=== PATIENT | male | born 1955 | race Caucasian/White ===

== ENCOUNTER → 2018-01-30 09:36 | Outpatient (CLI) | payer BC, SELFPAY ==
[2018-01-30 13:03] LABS: Anion Gap 11 (5-15); BUN 14 mg/dL (7-18); Calcium,Total 9.4 mg/dL (8.5-10.1); Chloride 98 mmol/L (98-107); Cholesterol 167 mg/dL (200); Creatinine, Serum 0.93 mg/dL (0.70-1.30); EST Glomerular Filtration Rate 87 mL/min (>60); Est Glom Filt Rate - Afr Amer 105 mL/min (>60); Glucose 103 mg/dL (74-106); High Density Lipoprotein 46 mg/dL; Potassium 3.6 mmol/L (3.5-5.1); Sodium Level 136 mmol/L (136-145); Triglycerides 247 mg/dL; Very Low Density Lipoprotein 49 mg/dL (5-40)
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
== END ==
PROVIDERS: Family Provider Family Medicine; PCP Family Medicine; Referring Provider Family Medicine; Visit Provider Family Medicine
DX: I10 Essential (primary) hypertension (principal); H40.9 Unspecified glaucoma
CPT/HCPCS: 36415; 80048; 80061

== ENCOUNTER → 2019-01-16 | Outpatient (CLI) | payer MEDICARE, SELFPAY ==
[2019-01-16 12:28] LABS: Anion Gap 8 (5-15); BUN 12 mg/dL (7-18); BUN/Creat Ratio 12.4 RATIO (10-20); Calcium,Total 9.3 mg/dL (8.5-10.1); Chloride 101 mmol/L (98-107); Cholesterol 168 mg/dL (200); Creatinine, Serum 0.97 mg/dL (0.70-1.30); EST Glomerular Filtration Rate 83 mL/min (>60); Est Glom Filt Rate - Afr Amer 100 mL/min (>60); Glucose 111 mg/dL (74-106); High Density Lipoprotein 44 mg/dL; Potassium 4.3 mmol/L (3.5-5.1); Sodium Level 138 mmol/L (136-145); Triglycerides 258 mg/dL; Very Low Density Lipoprotein 52 mg/dL (5-40)
== END | disposition home or self-care (01) ==
LOC: MFPLAB 10:21
PROVIDERS: Family Provider Family Medicine; PCP Family Medicine; Referring Provider Family Medicine; Visit Provider Family Medicine
DX: E78.00 Pure hypercholesterolemia, unspecified (principal); I10 Essential (primary) hypertension; Z12.5 Encounter for screening for malignant neoplasm of prostate
CPT/HCPCS: 36415; 80048; 80061; 84153; G0103

== ENCOUNTER → 2020-01-16 | Outpatient (CLI) | payer MEDICARE, SELFPAY ==
[2020-01-16 13:24] LABS: ALB/GLOB Ratio 1.2 RATIO (0.9-2.4); AST(SGOT) 16 U/L (15-37); Alanine Aminotransfer ALT/SGPT 35 U/L (16-61); Albumin, Serum 4.1 g/dL (3.2-5.0); Alkaline Phosphatase 91 U/L (45-117); Anion Gap 6 (5-15); BUN 15 mg/dL (7-18); BUN/Creat Ratio 14.6 RATIO (10-20); Calcium,Total 9.5 mg/dL (8.5-10.1); Chloride 98 mmol/L (98-107); Cholesterol 190 mg/dL (200); Creatinine, Serum 1.03 mg/dL (0.70-1.30); EST Glomerular Filtration Rate 77 mL/min (>60); Est Glom Filt Rate - Afr Amer 93 mL/min (>60); Globulin 3.5 g/dL (2.2-4.2); Glucose 107 mg/dL (74-106); High Density Lipoprotein 50 mg/dL; Potassium 3.5 mmol/L (3.5-5.1); Protein, Total 7.6 g/dL (6.4-8.2); Sodium Level 135 mmol/L (136-145); Triglycerides 269 mg/dL; Very Low Density Lipoprotein 54 mg/dL (5-40)
== END | disposition home or self-care (01) ==
LOC: MTLAB 09:46
PROVIDERS: PCP Family Medicine; Referring Provider Family Medicine; Visit Provider Family Medicine
DX: I10 Essential (primary) hypertension (principal)
CPT/HCPCS: 36415; 80053; 80061

== ENCOUNTER 2020-10-29 05:52 | Day surgery (SDC) | payer MEDICARE, SELFPAY ==
[2020-09-14 14:03] VITALS: BMI 34.2
--- NOTE | 2020-10-23 10:04 | EKG12_ITS ---
Test Reason : PRE OP Blood Pressure : / mmHG Vent. Rate : 059 BPM Atrial Rate : 059 BPM P-R Int : 172 ms QRS Dur : 096 ms QT Int : 394 ms P-R-T Axes : 052 -14 016 degrees QTc Int : 390 ms Sinus bradycardia Otherwise normal ECG Confirmed by ZENA CHRISTIANSON, GAYLE ([id number]), film editor supervisor MANUEL HENDERSON ([id number]) on 10/26/2020 1:10:00 PM Referred By: Damaso Day Confirmed By:GAYLE FREITAS MD
[2020-10-29] VITALS (7 sets, daily range): BP systolic 116–136; BP diastolic 67–80; PULSE 55–69; RESP 16–18; TEMP 36.2–36.5; O2SAT 94–100; BMI 33.7
[2020-10-29] MEDS: Lactated Ringers 1,000 ML 100 ML IV ×2 (06:27→08:21)
--- NOTE | 2020-10-29 07:10 | HP.PCM_ITS ---
History and Physical Date of Admission: 10/29/20 Intake Vital Signs 09/14/20 14:03 Height 5 ft 5 in Weight: 206 lb 2 oz BMI 34.2 BP 138/89 H Blood Pressure Location Rt brachial Position Sitting Respiration 16 Pulse 58 L Pulse Source Monitor Temp 97.9 F Temp Source Oral Pulse Oximetry (%) 100 Oxygen Delivery Method room air Intake Visit Reasons: R Inguinal Hernia Sound Effects Technician Required: No Accompanied by: Self Is patient in pain?: No (some soreness- Right groin) Allergies No Known Allergies Allergy (Verified 09/14/20 14:04) Medications atorvastatin 20 mg tablet ea PO 09/14/20 [History Confirmed 09/14/20] dorzolamide 22.3 mg-timolol 6.8 mg/mL eye drops ml OPHTHALMIC (EYE) 09/14/20 [History Confirmed 09/14/20] hydrochlorothiazide 25 mg tablet ea PO 09/14/20 [History Confirmed 09/14/20] metoprolol succinate 200 mg tablet,extended release 24 hr ea PO 09/14/20 [History Confirmed 09/14/20] mycophenolate mofetil 500 mg tablet ea PO 09/14/20 [History Confirmed 09/14/20] ramipril 10 mg capsule cap PO 09/14/20 [History Confirmed 09/14/20] PFSH Medical History (Updated 09/14/20 @ 13:57 by Zoraida Sandoval) Hemorrhoid Hypertension Right inguinal hernia Surgical History (Updated 09/14/20 @ 13:57 by Zoraida Sandoval) History of bilateral cataract extraction (~01/08/16) History of colonoscopy (~09/30/19) History of eye surgery (~02/15/18) History of tonsillectomy and adenoidectomy (Unknown) Family History (Updated 09/14/20 @ 14:02 by Zoraida Sandoval) Father Prostate cancer Hypertension Mother Thyroid disorder Myocardial infarction Social History (Updated 09/14/20 @ 14:03 by Zoraida Sandoval) Smoking Status: Former smoker how long ago did patient quit smokin years ago alcohol intake: current alcohol intake frequency: holidays/special occasions only substance use type: does not use caffeine: Yes what type of physical activity do you participate in: none frequency: does not exercise HPI HPI HPI: KIT GUZMAN, is a 64 M who presents to the office today for right inguinal hernia. Patient notes he has been having bulging in his right groin for over a year. Patient reports that he is not having any nausea or vomiting. It is causing discomfort. There is no discomfort in the opposite groin. Patient has no nausea or vomiting. ROS General General: No weight change, appetite, fatigue, colon cancer, breast cancer or weakness HEENT HEENT: Yes eye surgery; No difficulty swallowing, eye injury, swollen glands or hoarseness Endo Endocrine: No thyroid disease, diabetes mellitus, thyroid cancer, Hair loss, heat intolerance or cold intolerance Skin Skin: No rash or changing moles Musc Musculoskeletal: No back problems, arthritis, rheumatoid arthritis, gout or joint pain Cardio Cardiovascular: Yes high blood pressure; No murmur, pacemaker, heart disease, atrial fibrillation, heart attack, heart stent, palpitations, shortness of breat with exertion or chest pain Psych Psychiatric: No depression, anxiety or hearing voices Resp Respiratory: No shortness of breath, No sleep apnea, No cough, No COPD, No asthma, No emphysema and No wheezing Gastro Gastrointestinal: No abdominal pain, No nausea or vomiting, No diarrhea, No constipation, No blood in stool, No acid reflux, Yes hemorrhoids, No ulcers, No gallbladder problem and No black,tarry stools Alejandro Hematologic: No blood thinners, No blood disorders, No bleeding, No anemia and No blood clots Neuro Neurologic: No weakness Exam Const General: cooperative Orientation: alert and oriented x3 [facility] Head: normal to inspection Neck Neck: normal visual inspection and full ROM Chest Chest palpation & inspection: normal inspection of the chest Resp Effort & Inspection: normal respiratory effort Auscultation: clear to auscultation bilaterally Cardio Rate: regular rate Rhythm: regular rhythm GI Inspection: non-distended Palpation: soft, hernia indirect inguinal on the right and nontender Skin General: no rashes or lesions noted Neuro General: patient alert and patient oriented x3 Extrem General: full ROM Psych Appearance: grossly normal Mental Status: mental status grossly normal Assessment and Plan Assessment and Plan (1) Right inguinal hernia: Status: Acute Plan - Dr. Damaso Day MD: The patient has a right inguinal hernia. I discussed repair with him in detail. I discussed open versus laparoscopic repair. I discussed robotic assisted laparoscopic inguinal hernia repair with mesh. The patient would like contralateral hernia repaired if it is present. I discussed the risks of the procedure including not limited to bleeding, infection, injury to underlying bowel or spermatic cord and chronic groin pain. Patient understands the risks and is willing to proceed. Damaso Day MD Pager: [facility] [address] [place] [address], [address] [place] [address] Office: I have re-examined the patient. There are no clinical changes since date of exam.
--- NOTE | 2020-10-29 07:22 | SUR.PREOP ---
[id number] pt up to bathroom with assist- per dr lopez request. pt back to bed
[2020-10-29] MEDS: Cefazolin 2 GM in 0.9% Normal Saline 100 ML IV (07:23)
[2020-10-29] MEDS: Bupivacaine Mpf 0.5% 30 ML VIAL (09:14)
--- NOTE | 2020-10-29 09:29 | PCM.OPRPT ---
Problems Associated Problem List Diagnoses (1) Bilateral inguinal hernia: Report of Operation Date of Procedure: 10/29/20 Pre-Operative Diagnosis: Right inguinal hernia Post-Operative Diagnosis: Bilateral inguinal hernia Surgery/Procedure Performed:: Robotic assisted laparoscopic bilateral inguinal hernia repair with mesh Description of Procedure: Patient was brought back to the operating room and general anesthesia was used. There was a very difficult airway which required fiberoptic intubation. The abdomen was then prepped and draped in usual sterile fashion. An incision was made superior to the umbilicus and deepened to the fascia which was elevated and a Veress needle was placed into the abdomen and a drop test was performed. The abdomen was then insufflated to 15 mmHg. The Veress needle was removed and the camera port was placed. The camera was placed into the abdomen and the abdomen was inspected. There was no injury from entry. Patient was placed in Trendelenburg position and the inguinal regions were inspected. The patient appeared to have bilateral inguinal hernias right larger than left. Next under direct visualization 8 mm port was placed in the right lower quadrant and left lower quadrant. The robot was then docked. Using electrocautery scissors the right peritoneum was incised and dissection was carried inferiorly until the hernia sac was encountered. The hernia sac was dissected free from its dense attachments. ProGrip mesh was unfolded in the right groin completely covering the hernia defect. The peritoneum was reapproximated using a running 3-0V lock suture. There was a large opening in the peritoneum and this was closed with a separate running 3-0V lock suture. At the end of the side the peritoneum completely cover the mesh with no openings. Next the left side was addressed. In the same fashion the left side peritoneum was incised using electrocautery scissors. The dissection was carried inferiorly until the hernia sac was fully reduced and then the dissection was carried further inferiorly. ProGrip mesh was trimmed and placed into the left groin and unfolded over the hernia defect. The peritoneum was reapproximated using a running 3 OV lock suture. The peritoneum completely cover the mesh on the side of the end of the procedure. Both sides were once again inspected and then the instruments were removed and the abdomen was allowed to desufflate. The incisions were injected with local anesthetic and closed using interrupted 4-0 Monocryl suture. Steri-Strips and bandages were applied. The scrotum was checked at the end the case and contain both testicles. Patient was awoken and taken to PACU in stable condition tolerated the procedure well. Grafts/Implants Used: ProGrip mesh bilaterally Admit VTE Documentation VTE Mechan Device Prophylaxis: SCD's
--- NOTE | 2020-10-29 09:33 | EX.PCM.DISCH ---
Discharge Instructions Procedure Hernia Diet Discharge Diet: Light diet - advance as tolerated Activity Discharge Activity: May Not Drive (for 2-3 days or while taking narcotic pain meds.) and May Shower (with the bandage in place 1-2 days after surgery.) Lifting Restrictions: 20 pounds for 6 weeks. Additional Activity Instructions:: Climbing stairs is fine, walking is encouraged. Sitting in bed may be uncomfortable. Sitting up using your lateral muscles (sitting up sideways) is usually more comfortable. Do not drive, work heavy equipment of sign legal documents for 24 hours. If your hernia repair was an ingunial repair, you may have scrotal swelling, an ice pack and/or athletic support can provide more comfort. Pain medications may cause nausea, you should typically eat light foods as you take your pain medications. Pain medications may also cause constipation. If you have difficulty with this, discuss with your doctor. Dressing / Incision Call your doctor if your incision/area has: Continuous Slow Oozing, Sudden Increased Bleeding, Increased Pain/ Swelling, Increased Redness and Foul Smelling Discharge Call your doctor if you observe: Fever of 101 or Higher Suture Line Care: Avoid Pulling/Pushing and Avoid Pinching/Bending Remove Dressing in: 2 days Cleanse incision/area with: Soap & Water Additional Dressing/Incision Instructions:: Remove bandages in 2 days, remove Steri-Strips in 7 to 10 days Follow Up Care Please Follow Up With: Damaso Day MD When: Please call to schedule 2 week follow up appointment. [phone] Test Results: Test results from this visit will be discussed in further detail at your follow-up appointment, if applicable. Discharge Plan Admission Attending Provider: Damaso Day Primary Care Provider: Phoenix Walker Discharge Orders/Prescriptions Prescriptions: New oxycodone-acetaminophen [Percocet] 5-325 mg tablet 1 tab PO Q4H PRN (Reason: pain) 5 Days Qty: 10 RF: 0 Continued ramipril 10 mg capsule 10 mg PO QHS RF: 0 hydrochlorothiazide 25 mg tablet 25 mg PO DAILY RF: 0 metoprolol succinate 200 mg tablet extended release 24 hr 200 mg PO DAILY RF: 0 atorvastatin 20 mg tablet 20 mg PO DAILY RF: 0 mycophenolate mofetil 500 mg tablet 1,500 mg PO BID RF: 0 dorzolamide-timolol 22.3-6.8 mg/mL drops 1 drp ophthalmic (eye) BID RF: 0 PreserVision Lutein 226 mg-200 unit -5 mg-0.8 mg Capsule 1 cap PO DAILY RF: 0 Referrals / Follow Up: Phoenix Walker MD [Primary Care Provider] - Disposition Disposition (needs filled in before D/C Order can be placed): Home, Self Care
[2020-10-29] MEDS: oxyCODONE 5 MG Tablet PO (10:54)
[2020-10-29] MEDS: Acetaminophen 325 MG Tablet PO (10:54)
== END 2020-10-29 12:09 | disposition home or self-care (01) ==
LOC: SDC 05:52 → AC 05:53
PROVIDERS: PCP Family Medicine; Referring Provider Surgery; Visit Provider Surgery
PROC: (CPT 49650; principal; 2020-10-29 07:10)
DX: K40.20 Bilateral inguinal hernia, without obstruction or gangrene, not specified as recurrent (principal); I10 Essential (primary) hypertension; E78.00 Pure hypercholesterolemia, unspecified; Z79.899 Other long term (current) drug therapy; Z87.891 Personal history of nicotine dependence
CPT/HCPCS: 00840; 49650; 93005; J7120; J2405

== ENCOUNTER → 2020-12-22 09:38 | Outpatient (CLI) | payer MEDICARE, SELFPAY ==
[2020-12-22 13:09] LABS: Cholesterol 192 mg/dL (200); High Density Lipoprotein 50 mg/dL; PSA,Total - Annual Screen 3.48 ng/mL (0.00-4.00); Triglycerides 287 mg/dL; Very Low Density Lipoprotein 57 mg/dL (5-40)
[2020-12-22 13:25] LABS: Hepatitis C Antibody Non-Reactive (Nonreactive)
[2020-12-22 13:49] LABS: Hemoglobin A1c 4.9 % (3.8-5.6)
== END ==
PROVIDERS: PCP Family Medicine; Referring Provider Family Medicine; Visit Provider Family Medicine
DX: E78.00 Pure hypercholesterolemia, unspecified (principal); R73.01 Impaired fasting glucose; Z12.5 Encounter for screening for malignant neoplasm of prostate
CPT/HCPCS: 36415; 80061; 83036; 84153; 86803; G0103

== ENCOUNTER → 2021-11-11 | Outpatient (CLI) | payer MEDICARE, SELFPAY ==
[2021-11-11 12:10] LABS: Absolute Lymphocyte Count 2.03 X10^3/uL (0.83-4.51); Absolute Neutrophil Count 5.5 X10^3/uL (2.0-7.7); Basophil# 0.07 X10^3/uL; Basophil% 0.8 % (0-1); Eosinophil# 0.36 X10^3/uL; Hematocrit 44.7 % (40-54); Hemoglobin 15.4 g/dL (13.0-16.5); Lymphocyte # 2.03 X10^3/ul (0.83-4.51); Lymphocyte % 22.6 % (19-41); Mean Corp Hgb Conc 34.5 g/dL (32-36); Mean Corpuscular Volume 95.9 fL (80-94); Mean Platelet Vol. 10.7 fl (6.2-12.0); Monocyte# 0.98 X10^3/uL; Monocyte% 10.9 % (0-10); NRBC Flagged by Analyzer 0 % (0-5); Neutrophil # 5.54 X10^3/uL (2.7-7.7); Neutrophil % 61.5 % (47-70); Platelet Count 256 K/mm3 (150-450); RBC Distribution Width SD 45.4 fl (35.1-43.9); Red Blood Count 4.66 M/mm3 (4.6-6.2)
[2021-11-11 12:36] LABS: ALB/GLOB Ratio 1.2 RATIO (0.9-2.4); AST(SGOT) 18 U/L (15-37); Alanine Aminotransfer ALT/SGPT 40 U/L (16-61); Albumin, Serum 3.9 g/dL (3.2-5.0); Alkaline Phosphatase 94 U/L (45-117); Anion Gap 8 (5-15); BUN 14 mg/dL (7-18); BUN/Creat Ratio 14.4 RATIO (10-20); Calcium,Total 9.7 mg/dL (8.5-10.1); Chloride 101 mmol/L (98-107); Creatinine, Serum 0.97 mg/dL (0.70-1.30); EST Glomerular Filtration Rate 82 mL/min (>60); Est Glom Filt Rate - Afr Amer 99 mL/min (>60); Globulin 3.3 g/dL (2.2-4.2); Glucose 110 mg/dL (74-106); Potassium 3.8 mmol/L (3.5-5.1); Protein, Total 7.2 g/dL (6.4-8.2); Sodium Level 139 mmol/L (136-145)
== END | disposition home or self-care (01) ==
LOC: MFPLAB 10:44
PROVIDERS: PCP Family Medicine; Referring Provider Family Medicine; Visit Provider Family Medicine
DX: I10 Essential (primary) hypertension (principal); Z12.5 Encounter for screening for malignant neoplasm of prostate
CPT/HCPCS: 36415; 80053; 85025

== ENCOUNTER → 2022-12-20 | Outpatient (CLI) | payer MEDICARE, SELFPAY ==
[2022-12-20 13:22] LABS: AST(SGOT) 20 U/L (15-37); Alanine Aminotransfer ALT/SGPT 52 U/L (16-61); Albumin, Serum 3.5 g/dL (3.2-5.0); Alkaline Phosphatase 84 U/L (45-117); Anion Gap 6 (5-15); BUN 12 mg/dL (7-18); BUN/Creat Ratio 13.2 RATIO (10-20); Calcium,Total 9.1 mg/dL (8.5-10.1); Chloride 103 mmol/L (98-107); Cholesterol 135 mg/dL (200); Creatinine, Serum 0.91 mg/dL (0.70-1.30); EST Glomerular Filtration Rate 88 mL/min (>60); Est Glom Filt Rate - Afr Amer 106 mL/min (>60); Globulin 3.6 g/dL (2.2-4.2); Glucose 112 mg/dL (74-106); High Density Lipoprotein 44 mg/dL; PSA,Total - Annual Screen 4.05 ng/mL (0.00-4.00); Potassium 3.8 mmol/L (3.5-5.1); Protein, Total 7.1 g/dL (6.4-8.2); Sodium Level 137 mmol/L (136-145); Triglycerides 210 mg/dL; Very Low Density Lipoprotein 42 mg/dL (5-40)
[2022-12-20 13:27] LABS: Hemoglobin A1c 4.9 % (3.8-5.6)
[2022-12-20 15:33] LABS: Microalbumin,Random Urine < 5.0 mg/L (NO RANGE EST.)
== END | disposition home or self-care (01) ==
LOC: MTLAB 10:26
PROVIDERS: PCP Family Medicine; Referring Provider Family Medicine; Visit Provider Family Medicine
DX: Z12.5 Encounter for screening for malignant neoplasm of prostate (principal); R73.01 Impaired fasting glucose; E78.00 Pure hypercholesterolemia, unspecified; I10 Essential (primary) hypertension
CPT/HCPCS: 36415; 80053; 80061; 82043; 83036; 84153; G0103

== ENCOUNTER → 2023-07-05 | Outpatient (CLI) | payer MEDICARE, SELFPAY | END | disposition home or self-care (01) | LOC: MFPLAB 10:47 | PROVIDERS: PCP Family Medicine; Visit Provider Family Medicine | DX: R97.20 Elevated prostate specific antigen [PSA] (principal) | CPT/HCPCS: 36415; 84153 ==

== ENCOUNTER 2023-07-14 10:10 | Day surgery (SDC) | payer MEDICARE, SELFPAY ==
[2023-07-14 10:44] VITALS: BP 110/94; PULSE 62; RESP 16; TEMP 36.6; O2SAT 98; BMI 35.6
--- NOTE | 2023-07-14 10:49 | PCM.HP.BLA ---
History and Physical Date of Admission: 07/14/23 The patient is examined and there are no changes from the H&P dated 07/11/2023. He has a nodular lesion on the left neck with recent growth or change. He presents for excision of a lesion of the left neck. Assessment & Plan Assessment/Plan (1) Neoplasm of uncertain behavior of skin of neck: PLAN: Plan For excision of the lesion of the neck with submission for pathologic evaluation.
--- NOTE | 2023-07-14 11:30 | LES_PTH ---
PATIENT: KIT GUZMAN LOC: [facility] U#:[id number] AGE/SX: 67/M ROOM: RE07/14/[address]: Dr. Leticia Malloy MD : [id number] BED: DIS: 07/14/2023 SPEC #: [id number] RECD: 07/14/23 13:32 STATUS: COLE BALWINDER #: [id number] HELENA: 07/14/23 11:[address]: Leticia Malloy DEPT: SURGICAL PATHOLOGY RECD BY: Jesse Javed ENTERED: 07/17/23 07:19 SP TYPE: Lesion OTHR DR: Zainab Ramsay DO Tissues: Skin of neck, NOS Procedures: Surgery Specimen Level IV HEADER OPERATION: Excision lesion left neck (1.5cm) with intermediate closure PRE-OP DIAGNOSIS: Neoplasm of uncertain behavior of skin of neck TISSUE SUBMITTED: Left neck lesion MICROSCOPIC DIAGNOSIS Skin lesion of left neck, excisional biopsy: Basal cell carcinoma, superficial, nodular, completely excised. Mild solar elastosis. / 07/18/23 MICROSCOPIC DESCRIPTION Slides are reviewed. GROSS DESCRIPTION Received in fixative is one container labeled with the patient's name and designated Left neck lesion. The specimen consists of ellipse of light molina excised skin measuring 2.0 x 1.3 x 0.2cm. The specimen is inked, serially sectioned and totally submitted in one cassette. / 07/17/2023 TC:0 CPT:62642
[2023-07-14 11:43] VITALS: BP 122/75; O2SAT 96; O2SAT 98
[2023-07-14] MEDS: Lidocaine 1% /Epi 1:100 9 ML, Sodium Bicarbonate 1 MEQ OPERA.SITE (11:43)
[2023-07-14 11:58] VITALS: BP 115/76; O2SAT 94
--- NOTE | 2023-07-14 12:04 | DCINST_ITS ---
Discharge Instructions Dressing / Incision Additional Dressing/Incision Instructions:: Keep your head elevated (recliner position) for the next 2-3 nights to help reduce swelling and bruising. Take the oral antibiotic (Keflex) twice a day until finished. Try to keep the Steri-Strips dry and leave intact until seen in the office. If they should fall off, apply thin layer of antibiotic ointment (like Neosporin, bacitracin, or triple antibiotic ointment) once a day. Follow Up Care Please Follow Up With: Leticia Malloy MD When: 2 weeks Test Results: Test results from this visit will be discussed in further detail at your follow- up appointment, if applicable. Discharge Plan Admission Attending Provider: Leticia Malloy Primary Care Provider: Zainab Ramsay Discharge Orders/Prescriptions Prescriptions: New cephalexin 500 mg capsule 500 mg PO BID 5 Days Qty: 10 0RF No Action ramipril 10 mg capsule 10 mg PO QHS hydrochlorothiazide 25 mg tablet 25 mg PO DAILY Patient Comments: TAKE 1 TABLET BY MOUTH EVERY DAY metoprolol succinate 200 mg tablet extended release 24 hr 200 mg PO DAILY Patient Comments: TAKE 1 TABLET BY MOUTH EVERY DAY atorvastatin 20 mg tablet 20 mg PO DAILY Patient Comments: TAKE 1 TABLET BY MOUTH EVERY DAY mycophenolate mofetil 500 mg tablet 1,500 mg PO BID Patient Comments: TAKE 3 TABLETS BY MOUTH TWICE A DAY dorzolamide-timolol 22.3-6.8 mg/mL drops 1 drp ophthalmic (eye) BID PreserVision Lutein 226 mg-200 unit -5 mg-0.8 mg Capsule 1 cap PO DAILY Referrals / Follow Up: Zainab Ramsay DO [Primary Care Provider] - Disposition Disposition (needs filled in before D/C Order can be placed): Home, Self Care
--- NOTE | 2023-07-14 12:08 | PCM.OPRPT ---
Problems Associated Problem List Diagnoses (1) Neoplasm of uncertain behavior of skin of neck: Report of Operation Date of Procedure: 07/14/23 Pre-Operative Diagnosis: Neoplasm of uncertain behavior left neck Post-Operative Diagnosis: Same Surgery/Procedure Performed:: Excision neoplasm left neck (2.0 cm) with intermediate closure Surgeon: Leticia Malloy Type of Anesthesia: Local Specimen's removed: Neoplasm left neck Estimated Blood Loss (mL): Minimal Description of Procedure: Patient presents with a recent growth or change of a neoplasm of the left neck. He presents for excision of the lesion with submission for pathologic evaluation. He is aware of the potential need for further surgery depending on the resulting pathology. The patient was brought to the operating room and placed on the operating room table in supine position. The left neck is prepped and draped in the usual sterile fashion. 1% Xylocaine with epinephrine buffered with sodium bicarb was used for local anesthetic. Following this, the area is excised and passed off the operative field to be sent to pathology. Hemostasis is controlled with cautery. The wound is then closed in layers using a Monocryl suture in the subcutaneous tissue and dermis. Skin edges were approximated with a running subcuticular Monocryl suture. Dermabond and Steri-Strips were placed on the site. He tolerated the procedure well was taken to the recovery area in an awake and stable condition. Needle and sponge counts are correct. Complications None Admit VTE Documentation VTE Present on Admission: No Reason prophylaxis not ordered:: Treatment Not Indicated
[2023-07-14 12:33] VITALS: BP 112/61; PULSE 54; RESP 16; TEMP 36.6; O2SAT 97
== END 2023-07-14 13:10 | disposition home or self-care (01) ==
LOC: SDC 10:10 → AC 10:11
PROVIDERS: PCP Family Medicine; Referring Provider Plastic Surgery; Visit Provider Plastic Surgery
PROC: (CPT 11622; principal; 2023-07-14 11:15)
DX: C44.41 Basal cell carcinoma of skin of scalp and neck (principal); L57.8 Other skin changes due to chronic exposure to nonionizing radiation; E78.00 Pure hypercholesterolemia, unspecified; I10 Essential (primary) hypertension; Z87.891 Personal history of nicotine dependence; Z79.899 Other long term (current) drug therapy
CPT/HCPCS: 11622; 12041; 88305

== ENCOUNTER → 2023-12-05 | Outpatient (CLI) | payer MEDICARE, SELFPAY ==
[2023-12-05 15:20] LABS: Absolute Lymphocyte Count 2.59 X10^3/uL (0.83-4.51); Absolute Neutrophil Count 5.4 X10^3/uL (2.0-7.7); Basophil# 0.07 X10^3/uL; Basophil% 0.7 % (0-1); Eosinophils% 3.2 % (0-5); Hematocrit 45.2 % (40-54); Hemoglobin 15.3 g/dL (13.0-16.5); Lymphocyte # 2.59 X10^3/ul (0.83-4.51); Lymphocyte % 27.3 % (19-41); Mean Corp Hgb Conc 33.8 g/dL (32-36); Mean Corpuscular Hgb 32.3 pg (27.0-32.0); Mean Corpuscular Volume 95.4 fL (80-94); Mean Platelet Vol. 10.9 fl (6.2-12.0); Monocyte# 1.08 X10^3/uL; Monocyte% 11.4 % (0-10); NRBC Flagged by Analyzer 0 % (0-5); Neutrophil # 5.44 X10^3/uL (2.7-7.7); Neutrophil % 57.2 % (47-70); Platelet Count 266 K/mm3 (150-450); RBC Distribution Width CV 12.7 % (11.6-14.6); RBC Distribution Width SD 44.4 fl (35.1-43.9); Red Blood Count 4.74 M/mm3 (4.6-6.2); White Blood Count 9.5 K/mm3 (4.4-11.0)
[2023-12-05 16:05] LABS: AST(SGOT) 20 U/L (15-37); Alanine Aminotransfer ALT/SGPT 40 U/L (16-61); Albumin, Serum 3.9 g/dL (3.2-5.0); Alkaline Phosphatase 96 U/L (45-117); Anion Gap 6 (5-15); BUN 18 mg/dL (7-18); BUN/Creat Ratio 15.9 RATIO (10-20); Calcium,Total 9.9 mg/dL (8.5-10.1); Chloride 97 mmol/L (98-107); Cholesterol 163 mg/dL (200); Creatinine, Serum 1.13 mg/dL (0.70-1.30); EST Glomerular Filtration Rate 68 mL/min (>60); Est Glom Filt Rate - Afr Amer 83 mL/min (>60); Globulin 3.8 g/dL (2.2-4.2); Glucose 114 mg/dL (74-106); High Density Lipoprotein 46 mg/dL; PSA,Total- Diagnostic 4.18 ng/mL (0.0-4.0); Potassium 3.9 mmol/L (3.5-5.1); Protein, Total 7.7 g/dL (6.4-8.2); Sodium Level 132 mmol/L (136-145); Triglycerides 193 mg/dL; Very Low Density Lipoprotein 39 mg/dL (5-40)
== END | disposition home or self-care (01) ==
PROVIDERS: PCP Family Medicine; Visit Provider Family Medicine
DX: I10 Essential (primary) hypertension (principal); R97.20 Elevated prostate specific antigen [PSA]; E78.00 Pure hypercholesterolemia, unspecified
CPT/HCPCS: 36415; 80053; 80061; 84153; 85025

== ENCOUNTER → 2024-07-09 | Outpatient (CLI) | payer MEDICARE, SELFPAY ==
[2024-07-10 13:08] LABS: PSA, Free % 26.5 % (.)
== END | disposition home or self-care (01) ==
LOC: MTLAB 10:45
PROVIDERS: PCP Family Medicine; Referring Provider Urology; Visit Provider Urology
DX: R97.20 Elevated prostate specific antigen [PSA] (principal)
CPT/HCPCS: 36415; 84153; 84154

== ENCOUNTER → 2024-11-29 | Outpatient (CLI) | payer MEDICARE, SELFPAY ==
[2024-11-29 12:33] LABS: Hematocrit 42.4 % (40-54); Hemoglobin 14.5 g/dL (13.0-16.5); Mean Corp Hgb Conc 34.2 g/dL (32-36); Mean Corpuscular Volume 95.1 fL (80-94); Mean Platelet Vol. 10.7 fl (6.2-12.0); Platelet Count 207 K/mm3 (150-450); RBC Distribution Width CV 12.9 % (11.6-14.6); RBC Distribution Width SD 45.1 fl (35.1-43.9); Red Blood Count 4.46 M/mm3 (4.6-6.2); White Blood Count 7.9 K/mm3 (4.4-11.0)
[2024-11-29 13:21] LABS: AST(SGOT) 20 U/L (<=37); Alanine Aminotransfer ALT/SGPT 30 U/L (<=46); Albumin, Serum 3.4 g/dL (3.4-4.8); Alkaline Phosphatase 69 U/L (40-129); Anion Gap 10 (5-15); BUN 11 mg/dL (4-19); BUN/Creat Ratio 11.0 RATIO (10-20); Calcium,Total 8.5 mg/dL (7.6-11.0); Carbon Dioxide 25.0 mmol/L (21.0-32.0); Chloride 104 mmol/L (98-108); Cholesterol 239 mg/dL (<=200); Globulin 3.2 g/dL (2.2-4.2); Glucose 102 mg/dL (70-99); Low Density Lipoprotein Calc. 164 mg/dL; PSA,Total - Annual Screen 3.17 ng/mL (0.02-4.00); Potassium 4.3 mmol/L (3.3-5.1); Triglycerides 182 mg/dL; Very Low Density Lipoprotein 36 mg/dL (5-40); cholesterol:hdl ratio screen 6.16
== END | disposition home or self-care (01) ==
LOC: MFPLAB 10:11
PROVIDERS: PCP Family Medicine; Referring Provider Family Medicine; Visit Provider Family Medicine
DX: Z12.5 Encounter for screening for malignant neoplasm of prostate (principal); E78.00 Pure hypercholesterolemia, unspecified; I10 Essential (primary) hypertension
CPT/HCPCS: 36415; 80053; 80061; 84153; 85027; G0103